=== PATIENT | female | born 1980 | race Two or more races ===

== ENCOUNTER 2024-01-13 18:08 | Emergency (ER) | payer MEDICAID, OTHER ==
[~2024-01-13] VITALS: Ht 154.9 cm; Wt 59.7 kg
[2024-01-13 18:33] LABS: Basophils # (auto) 0.1 10 ^3/uL (0-0.2); Basophils % (auto) 1.7 % (0.0-2.0); Eosinophils # (auto) 0.1 10 ^3/uL (0-0.8); Eosinophils % (auto) 1.3 % (0.0-7.0); Hematocrit 41.5 % (36.0-46.0); Hemoglobin 13.7 g/dL (12.2-16.2); Lymphocytes # (auto) 2.2 10 ^3/uL (0.4-5.4); Lymphocytes % (auto) 43.7 % (10.0-50.0); Mean Corpuscular Hemoglobin 31.1 pg (28.0-32.0); Mean Corpuscular Hgb Conc. 32.9 g/dL (32.0-36.0); Mean Corpuscular Volume 94.4 fL (80.0-100.0); Monocytes # (auto) 0.5 10 ^3/uL (0-1.3); Monocytes % (auto) 9.7 % (0.0-12.0); Neutrophils # (auto) 2.2 10 ^3/uL (1.6-8.6); Neutrophils % (auto) 43.6 % (37.0-80.0); Nucleated Red Blood Cells % 0.1 %; Red Cell Distribution Width 13.2 % (11.8-14.3); White Blood Cell 5.1 10^3/uL (4.4-10.8)
[2024-01-13 18:50] LABS: INR 1.06 (0.9-1.15); Partial Thromboplastin Time 32.7 SEC (24.5-34.5); Prothrombin Time 11.1 sec (9.3-11.8)
[2024-01-13 18:54] LABS: Alanine Aminotransferase 10 U/L (7-40); Albumin 4.7 g/dL (3.2-4.8); Alkaline Phosphatase 50 U/L (46-116); Anion Gap 5 (5-15); Aspartate Aminotransferase 13 U/L (13-40); Calcium 9.8 mg/dL (8.7-10.4); Carbon Dioxide 28 mmol/L (20-30); Chloride 109 mmol/L (98-107); Glucose 84 mg/dL (74-106); Potassium 3.5 mmol/L (3.5-5.1); Sodium 142 mmol/L (136-145)
[2024-01-13 18:55] LABS: Bilirubin, Total 0.5 mg/dL (0.2-1.0); Total Protein 7.5 g/dL (5.7-8.2)
[2024-01-13 19:08] LABS: Urine Bacteria NONE SEEN /hpf (None Seen); Urine Blood Negative /uL (Negative); Urine Clarity Clear (Clear); Urine Color Colorless (Yellow); Urine Mucus FEW (None Seen); Urine Protein, UAD Negative (Negative); Urine Specific Gravity 1.012 (1.001-1.035); Urine Urobilinogen Normal (Negative); Urine WBC <1 /hpf (0 - 5)
[2024-01-13 19:30] LABS: BUN/Creatinine Ratio 6.7 (10.0-20.0); Blood Urea Nitrogen 6 mg/dL (9-23)
[2024-01-13] MEDS ORDERED: AML5T PO (21:49)
[2024-01-13 21:52] VITALS: BP 182/116; PULSE 88; RESP 18; TEMP 98.3; O2SAT 98
== END 2024-01-13 22:19 | disposition home or self-care (01) ==
LOC: ER 18:08
DX: R07.89 Other chest pain (principal)
CPT/HCPCS: 36415; 71045; 80053; 81001; 83735; 83880; 84484; 85025; 85610; 85730; 93005

== ENCOUNTER 2024-10-08 15:25 | Emergency (ER) | payer MEDICAID ==
[~2024-10-08] VITALS: Ht 165.1 cm; Wt 70.0 kg
[~2024-10-08 15:25] MED LIST: AML5T PO
--- NOTE | 2024-10-08 15:45 | ECG ---
[facility] Test Date: 2024-10-08 Test Time: 15:44:22 Pat Name: ZULAY UREÑA Department: ER Room: Gender: F Schedule Manager: OKSANA : 1980 Requested By: MARSHALL YEPEZ Order Number: [id number] Reading MD: Measurements Intervals [place] Rate: 59 P: 44 SC: 211 QRS: -9 QRSD: 93 T: -34 QT: 409 QTc: 406 Interpretive Statements Sinus rhythm Prolonged SC interval Probable anteroseptal infarct, old Nonspecific T abnormalities, inferior leads Please click the below link to view image of tracing.
--- NOTE | 2024-10-08 15:57 | ED.PDOC ---
History of Present Illness HPI Comments 43-year-old female who comes in with chief complaint of chest pain and anxiety. The patient states that the pain is a 5/10. There has been vomiting at this time. The patient states that she had an argument with some family members and she states that she has been out of her medications so was not able to take anything for her anxiety. The patient now comes in with a significant amount of vomiting and the patient's blood pressure was somewhat elevated. Her blood pressure was 160/100. 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 History: No Pertinent DIRECTOR OF NUCLEAR MEDICINE History Family History Family History: Family hx of DM, Family hx of HTN Social History Smoker: Cigarettes Alcohol: Denies ETOH Use Drugs: Marijuana Lives In: Home Constitutional: denies: chills, diaphoresis, fatigue, fever, malaise, sweats, weakness, others EENTM: denies: blurred vision, double vision, ear bleeding, ear discharge, ear drainage, ear pain, ear ringing, eye pain, eye redness, hearing loss, mouth pain, mouth swelling, nasal discharge, nose bleeding, nose congestion, nose pain, photophobia, tearing, throat pain, throat swelling, voice changes, others Respiratory: denies: cough, hemoptysis, orthopnea, SOB at rest, shortness of breath, SOB with excertion, stridor, wheezing, others Cardiovascular: reports: chest pain; denies: dizzy spells, diaphoresis, Dyspnea on exertion, edema, irregular heart beat, left arm pain, lightheadedness, palpitations, PND, syncope, others Gastrointestinal: denies: abdomen distended, abdominal pain, blood streaked bowels, constipated, diarrhea, dysphagia, difficulty swallowing, hematemesis, melena, nausea, poor appetite, poor fluid intake, rectal bleeding, rectal pain, vomiting, others Genitourinary: denies: abnormal vagina bleeding, burning, dyspareunia, dysuria, flank pain, frequency, hematuria, incontinence, pain, , vagina discharge, urgency, others Neurological: denies: dizziness, fainting, headache, left sided numbness, left sided weakness, numbness, paresthesia, pre-existing deficit, right sided numbnes s, right sided weakness, seizure, speech problems, tingling, tremors, weakness, others Musculoskeletal: denies: back pain, gout, joint pain, joint swelling, muscle pain, muscle stiffness, neck pain, others Integumetry: denies: bruises, change in color, change in hair/nails, dryness, laceration, lesions, lumps, rash, wounds, others Allergic/Immunocompromised: denies: Difficulty Healing, Frequent Infections, Hives, Itching, others Hematologic/Lymphatic: denies: anemia, blood clots, easy bleeding, easy bruising, swollen glands, others Endocrine: denies: excessive hunger, excessive sweating, excessive thirst, excessive urination, flushing, intolerance to cold, intolerance to heat, unexplained weight gain, unexplained weight loss, others Psychiatric: reports: anxiety; denies: bipolar disorder, depression, hopeless, panic disorder, schizophrenia, sleepless, suicidal, others Physical Exam General Appearance: No Apparent Distress HEENT: Normal ENT Inspection, Pharynx Normal, TMs Normal Neck: Full Range of Motion, Non-Tender, Normal, Normal Inspection Respiratory: Chest Non-Tender, Lungs Clear, No Accessory Muscle Use, No Respiratory Distress, Normal Breath Sounds Cardiovascular: No Edema, No JVD, No Murmur, No Gallop, Normal Peripheral Pulses, Regular Rate/Rhythm Breast Exam: Deferred Gastrointestinal: No Organomegaly, Non Tender, No Pulsatile Mass, Normal Bowel Sounds, Soft Genitalia: Deferred Pelvic: Deferred Rectal: Deferred Extremities: No calf tenderness, Normal capillary refill, Normal inspection, Normal range of motion, Non-tender, No pedal edema Musculoskeletal : Apperance: Normal Neurologic: Alert, director of diversity and inclusion II-XII nml as Tested, No Motor Deficits, Normal Affect, Normal Mood, No Sensory Deficits Cerebellar Function: Normal Reflexes: Normal Skin: Dry, Normal Color, Warm Lymphatic: No Adenopathy Was a procedure done? Was a procedure done?: No Differential Dx Considerations may include: Anxiety atypical chest pain, generalized weakness X-Ray, Labs, Meds, VS Vital Signs Date Time Temp Pulse Resp B/P (MAP) Pulse Ox O2 Delivery O2 Flow Rate FiO2 10/08/24 15:44 59 10/08/24 15:30 97.9 68 20 163/100 (121) 100 The patient was given Ativan 1 mg by mouth The patient was given Zofran 4 mg by mouth The patient is being discharged with a prescription for the anxiety in the high blood pressure Time of 1ST Reevaluation: 15:55 Reevaluation 1ST: Unchanged Patient Education/Counseling: Diagnosis, Treatment, Prognosis, Need For Follow Up Family Education/Counseling: No Family Present Departure 1 Departure Time of Disposition: 15:57 Impression: Primary Impression: Acute anxiety Additional Impressions: Vomiting Qualified Codes: R11.14 - Bilious vomiting Hypertensive urgency Disposition: 01 HOME / SELF CARE / HOMELESS Condition: Fair e-Prescriptions Ondansetron Odt 4MG Tab (ZOFRAN PO) 4 Mg Tb 4 MG PO Q8HP PRN for 5 Days, #15 TAB ODT TAB-DISSOLVE IN MOUTH, THEN SWALLOW Prov: MARSHALL YEPEZ MD 10/08/24 Amlodipine Besylate (NORVASC TABLET) 5 Mg Tb 1 TAB PO DAILY, #30 TAB 5 Refills Prov: MARSHALL YEPEZ MD 10/08/24 Discharged With: Self Critical Care Note Critical Care Time?: No Stability Stability form required: No Heart Score Heart Score: Heart Score Response (Comments) Value History N/A 0 EKG N/A 0 Age N/A 0 Risk Factors N/A 0 Troponin N/A 0 Total 0 MARSHALL YEPEZ MD Oct 08, 2024 15:57
[2024-10-08] MEDS ORDERED: AML5T PO (15:58)
[2024-10-08] MEDS ORDERED: ZOFR4T PO (15:58)
[2024-10-08] MEDS: ONDANSETRON ODT 4 MG TAB PO ONE (16:45)
[2024-10-08] MEDS: LORazepam 0.5 MG TAB PO ONE (16:45)
[2024-10-08 16:48] VITALS: BP 174/98; PULSE 61; RESP 16; TEMP 98; O2SAT 98
== END 2024-10-08 16:50 | disposition home or self-care (01) ==
LOC: EDBD 15:25 → ER 15:25 → EDUNIT# 15:25 → ER 16:50
DX: F41.9 Anxiety disorder, unspecified (principal); R11.10 Vomiting, unspecified; I16.0 Hypertensive urgency; F17.210 Nicotine dependence, cigarettes, uncomplicated; F12.90 Cannabis use, unspecified, uncomplicated; Z98.890 Other specified postprocedural states
CPT/HCPCS: 93005